=== PATIENT | female | born 1975 | race African-American/Black ===

== ENCOUNTER 2016-05-29 14:19 | Emergency (ER) | payer OTHER, SELFPAY ==
[2016-05-29] MEDS ORDERED: Sulfameth/Trimethoprim DS 800-160mg TAB ONE (14:58)
[2016-05-29] MEDS ORDERED: Dexamethasone 4 mg/ml Vial ONE (15:12)
--- NOTE | 2016-05-29 15:31 | ERRECORD ---
[facility] EMERGENCY RECORD PAST MEDICAL HISTORY (14:50 JSMI) MEDICAL HISTORY: Flu vaccine up to date, Tetanus not up to date, Past medical history includes history of hypertension, which has been treated, Past medical history includes neurological disease, migraine headaches. FEMALE SURGICAL HISTORY: Surgical history of cholecystectomy, laparoscopic, Surgical history of tubal ligation. PSYCHIATRIC HISTORY: No previous psychiatric history. SOCIAL HISTORY: Patient drinks socially, twice a month, Patient denies drug use, Patient has no smoking history.01/19/15. KNOWN ALLERGIES No Known Drug Intolerances CURRENT MEDICATIONS (14:48 JSMI) nortriptyline: CAPSULE : Strength - 25 mg : ORAL Patient Dose: once a day (at bedtime). VITAL SIGNS (14:45 JSMI) VITAL SIGNS: BP: 130/86, Pulse: 86, Resp: 14, Temp: 98.3 (Oral), Pain: 6, O2 sat: 99 on Room Air, Time: 05/29/2016 14:45. MEDICATION ADMINISTRATION SUMMARY Drug Name: dexamethasone, Dose Ordered: 8 mg, Route: Oral, Status: Given, Time: 15:14 05/29/2016, Drug Name: Septra DS, Dose Ordered: 2 tab(s), Route: Oral, Status: Given, Time: 14:59 05/29/2016, Detailed record available in Medication Service section. PROBLEM LIST No recorded problems DIAGNOSIS (15:09 [facility]) FINAL: PRIMARY: Otitis Media - Bilateral. PRESCRIPTION (15:08 JPIP) Septra DS: TABLET : 800 mg-160 mg : ORAL : Quantity: 1 Unit: tab(s) Route: ORAL Schedule: 2 times a day Dispense: 20 May substitute. Refills: No Refills . NOTES: No refills. Tylenol-Codeine #3: TABLET : 300 mg-30 mg : ORAL : Quantity: 1-2 Unit: tab(s) Route: ORAL Schedule: every 6 hours PRN Dispense: 30 May substitute. Refills: No Refills . NOTES: ^s=No refills No refills. &a-1R&a+25V*p+0X*a2587W*c202B*c15G*c2P*p-0X&a-25V&a+1R Name: Carrie Escoto : 1975 F41 MedRec: [id number] AcctNum: [id number] Prepared: WedMay 29, 2016 15:27 by Interface Page 1 of 2 pMD [facility] EMERGENCY RECORD DISPOSITION PATIENT: Disposition Type: Discharge, Disposition: *Discharge Home, Condition: Good. (15:09 JPIP) Patient left the department. (15:22 AHOO) José: AHOO=CAROL Nicole, August JPIP=DO Perez Joseph JSMI=PAUL Booth, Anayeli &a-1R&a+25V*p+0X*i9971Y*c202B*c15G*c2P*p-0X&a-25V&a+1R Name: Carrie Escoto : 1975 F41 MedRec: [id number] AcctNum: [id number] Prepared: WedMay 29, 2016 15:27 by Interface Page 2 of 2 pMD MTDD
--- NOTE | 2016-05-29 15:35 | PICIS ---
[facility] EMERGENCY RECORD TRIAGE (14:48 JSMI) PATIENT: NAME: Carrie Escoto, AGE: 41, GENDER: female, : Lynsey 1975, TIME OF GREET: WedMay 29, 2016 14:19, PREFERRED LANGUAGE: Turkish, ETHNICITY: Not or , ECODE BILLING MAP: [facility], SSN: [id number], Zip Code: [address], KG WEIGHT: 97.52, PHONE: , , , PERSON ID: [id number], PCP: [facility], . (14:48 JSMI) COMPLAINT: BILATERAL EAR PAIN. (14:48 JSMI) ADMISSION: URGENCY: 5 Fast Track, ADMISSION SOURCE: Home, TRANSPORT: CAR, BED: ER -03. (14:48 JSMI) ASSESSMENT: Assessment: PT PRESENTS AWAKE ALERT AND ORIENTED. SKIN PINK WARM AND DRY., Symptoms began 05/26/2016. (14:50 JSMI) PAIN: Patient complains of pain described as, aching, Location BILATERAL EARS R>L, Pain is constant. (14:50 JSMI) SIRS SCORING: Heart Rate 55-109 (0), Temp range 96.8-101.1 (0), respiratory rate 12-24 (0), Mental Status altered: no (0), Infection or Suspected Infection: No. (14:50 JSMI) PROVIDERS: TRIAGE NURSE: Anayeli Booth RN. (14:48 JSMI) VITAL SIGNS: BP 130/86, Pulse 86, Resp 14, Temp 98.3, (Oral), Pain 6, O2 Sat 99, on Room Air, Time 05/29/2016 14:45. (14:45 JSMI) PREVIOUS VISIT ALLERGIES: No Known Drug Intolerances. (14:48 JSMI) No Known Drug Intolerances. (14:50 JSMI) KNOWN ALLERGIES No Known Drug Intolerances CURRENT MEDICATIONS (14:48 JSMI) nortriptyline: CAPSULE : Strength - 25 mg : ORAL Patient Dose: once a day (at bedtime). VITAL SIGNS (14:45 JSMI) VITAL SIGNS: BP: 130/86, Pulse: 86, Resp: 14, Temp: 98.3 (Oral), Pain: 6, O2 sat: 99 on Room Air, Time: 05/29/2016 14:45. NURSING ASSESSMENT: ENT (14:50 [facility]) CONSTITUTIONAL: Complex assessment performed, Patient arrives ambulatory, Gait steady, History obtained from patient, Patient appears comfortable, Patient cooperative, Patient alert, Oriented to person, place and time, Skin warm, Skin dry, Skin normal in color, Mucous membranes pink, Mucous membranes moist, Patient is well-groomed, Patient complains of BILARTERAL EAR PAIN. PAIN: to the left ear, to the right ear, on a scale 0-10 patient rates pain as 6. ENT: no drainage from ears. RESPIRATORY/CHEST: Breath sounds clear, Respiratory assessment findings include respiratory effort easy, Respirations regular, &a-1R&a+25V*p+0X*a0784M*c202B*c15G*c2P*p-0X&a-25V&a+1R Name: Carrie Escoto : 1975 F41 MedRec: [id number] AcctNum: [id number] Prepared: WedMay 29, 2016 15:33 by Interface Page 1 of 4 pMD [facility] EMERGENCY RECORD Conversing normally, Neck and chest exam findings include trachea midline, Chest expansion equal, Chest movement symmetrical, Notes: DENIES COUGH/CONGESTION. NURSING PROCEDURE: DISCHARGE NOTE (15:20 OO) DISCHARGE: Patient discharged to home, ambulating without assistance, driving self, unaccompanied, Summary of Care printed/ provided, Transition record given to patient, Discharge instructions given to patient, Prescriptions given and instructions on side effects given, Above person(s) verbalized understanding of discharge instructions and follow-up care, Patient treated and evaluated by physician. MEDICATION ADMINISTRATION SUMMARY Drug Name: dexamethasone, Dose Ordered: 8 mg, Route: Oral, Status: Given, Time: 15:14 05/29/2016, Drug Name: Septra DS, Dose Ordered: 2 tab(s), Route: Oral, Status: Given, Time: 14:59 05/29/2016, Detailed record available in Medication Service section. MEDICATION SERVICE dexamethasone: Order: dexamethasone - Dose: 8 mg : Oral Schedule: Now Ordered by: Kyrie Perez DO Entered by: Kyrie Perez DO WedMay 29, 2016 15:08 , Acknowledged by: Cristin Nicole LVN WedMay 29, 2016 15:10 Documented as given by: Cristin Nicole LVN WedMay 29, 2016 15:14 Patient, Medication, Dose, Route and Time verified prior to administration. Amount given: 8MG, Correct patient, time, route, dose and medication confirmed prior to administration, Patient advised of actions and side-effects prior to administration, Allergies confirmed and medications reviewed prior to administration, Patient in position of comfort, Side rails up, Cart in lowest position, Family at bedside. Septra DS: Order: Septra DS (sulfamethoxazole/trimethoprim) - Dose: 2 tab(s) : Oral Schedule: Now Ordered by: Kyrie Perez DO Entered by: Kyrie Perez DO WedMay 29, 2016 14:55 , Acknowledged by: Anayeli Booth RN WedMay 29, 2016 14:56 Documented as given by: Anayeli Booth RN WedMay 29, 2016 14:59 Patient, Medication, Dose, Route and Time verified prior to administration. Correct patient, time, route, dose and medication confirmed prior to administration, Patient advised of actions and side-effects prior to administration, Allergies confirmed and medications reviewed prior to administration, Patient in position of comfort, Side rails up, Cart in lowest position. &a-1R&a+25V*p+0X*t4151W*c202B*c15G*c2P*p-0X&a-25V&a+1R Name: Carrie Escoto : 1975 F41 MedRec: [id number] AcctNum: [id number] Prepared: WedMay 29, 2016 15:33 by Interface Page 2 of 4 pMD [facility] EMERGENCY RECORD PAST MEDICAL HISTORY (14:50 JSMI) MEDICAL HISTORY: Flu vaccine up to date, Tetanus not up to date, Past medical history includes history of hypertension, which has been treated, Past medical history includes neurological disease, migraine headaches. FEMALE SURGICAL HISTORY: Surgical history of cholecystectomy, laparoscopic, Surgical history of tubal ligation. PSYCHIATRIC HISTORY: No previous psychiatric history. SOCIAL HISTORY: Patient drinks socially, twice a month, Patient denies drug use, Patient has no smoking history.01/19/15. EVENTS TRANSFER: Triage to Emergency Emergency Room -03. (WedMay 29, 2016 14:48 JSMI) Removed from Emergency Emergency Room -03. (15:22 OO) PROBLEM LIST No recorded problems DIAGNOSIS (15: JPIP) FINAL: PRIMARY: Otitis Media - Bilateral. DISPOSITION PATIENT: Disposition Type: Discharge, Disposition: *Discharge Home, Condition: Good. (15: JPIP) Patient left the department. (15:22 AHOO) INSTRUCTION (15: JPIP) DISCHARGE: EARACHE WITH INFECTION OTITIS MEDIA ABX [place] ADULT. FOLLOWUP: [facility], ., [facility], [address] [place] [address], [address], [place] , . SPECIAL: Finish all your antibiotics Follow up with Primary Care Physician within 72 hours Return to the Emergency Department for increased symptoms problems or concerns Take acetaminophen or ibuprofen for pain. PRESCRIPTION (15:08 JPIP) Septra DS: TABLET : 800 mg-160 mg : ORAL : Quantity: 1 Unit: tab(s) Route: ORAL Schedule: 2 times a day Dispense: 20 May substitute. Refills: No Refills . NOTES: No refills. Tylenol-Codeine #3: TABLET : 300 mg-30 mg : ORAL : Quantity: 1-2 Unit: tab(s) Route: ORAL Schedule: every 6 hours PRN Dispense: 30 May substitute. Refills: No Refills . NOTES: ^s=No refills No refills. &a-1R&a+25V*p+0X*l1060J*c202B*c15G*c2P*p-0X&a-25V&a+1R Name: Carrie Escoto : 1975 F41 MedRec: [id number] AcctNum: [id number] Prepared: WedMay 29, 2016 15:33 by Interface Page 3 of 4 pMD [facility] EMERGENCY RECORD IMAGING *DISCHARGE INSTRUCTIONS RECEIPT: Image captured from scanner. (15:21 OO) *SUPPLY CHARGE SHEET: Image captured from scanner. (15:22 OO) José: AHOO=CAROL NicoleAugust JPIP=DO Perez Joseph JSMI=PAUL Booth Julie &a-1R&a+25V*p+0X*j7517P*c202B*c15G*c2P*p-0X&a-25V&a+1R Name: Carrie Escoto : 1975 F41 MedRec: [id number] AcctNum: [id number] Prepared: WedMay 29, 2016 15:33 by Interface Page 4 of 4 pMD MTDD
== END 2016-05-29 15:20 | disposition home or self-care (01) ==
LOC: BURERS 14:19
DX: H66.93 Otitis media, unspecified, bilateral (principal); I10 Essential (primary) hypertension; G43.909 Migraine, unspecified, not intractable, without status migrainosus; Z79.899 Other long term (current) drug therapy
CPT/HCPCS: 99282; J1100

== ENCOUNTER 2017-10-24 05:17 | Emergency (ER) | payer BC ==
[2017-10-24 05:45] LABS: Clarity Turbid (Clear)
[2017-10-24 05:46] LABS: Glucose, Urine (Dipstick) Negative (Negative); Leukocyte Large (Negative); Nitrite Positive (Negative); Protein, Urine (Dipstick) > or equal to 300 mg/dL (Neg-Trace); Urobilinogen 0.2 mg/dL (0.2-1.0)
[2017-10-24 05:47] LABS: Bilirubin Small (Negative); Blood, Urine Large (Negative)
[2017-10-24 05:48] LABS: Bacteria/HPF 2+ HPF (None Seen); Squamous Epithelial None Seen HPF (0-3)
[2017-10-24] MEDS ORDERED: Nitrofurantoin Monohyd/M-Cryst 100 MG CAP PO SCH (06:00)
[2017-10-24] MEDS ORDERED: Phenazopyridine HCl 97.5 MG TABLET ONE (06:01)
== END 2017-10-24 06:08 | disposition home or self-care (01) ==
LOC: BURERS 05:17
DX: N12 Tubulo-interstitial nephritis, not specified as acute or chronic (principal); G43.909 Migraine, unspecified, not intractable, without status migrainosus; I10 Essential (primary) hypertension; Z79.899 Other long term (current) drug therapy
CPT/HCPCS: 81003; 81015; 87077; 87086; 87186; 99283

== ENCOUNTER 2018-05-14 23:04 | Emergency (ER) | payer BC ==
[2018-05-14] MEDS ORDERED: Neomycin-Polymyxin-Hc 7.5 ML BOT ONE (23:59)
[2018-05-15] MEDS ORDERED: AMOXicillin 250 MG CAP ONE (00:02)
== END 2018-05-15 00:08 | disposition home or self-care (01) ==
LOC: BURERS 23:04
DX: H66.91 Otitis media, unspecified, right ear (principal); H60.91 Unspecified otitis externa, right ear; I10 Essential (primary) hypertension; G43.909 Migraine, unspecified, not intractable, without status migrainosus; Z79.899 Other long term (current) drug therapy
CPT/HCPCS: 69210

== ENCOUNTER 2018-07-27 05:43 | Emergency (ER) | payer BC | END 2018-07-27 06:05 | disposition home or self-care (01) | LOC: BURERS 05:43 | DX: J06.9 Acute upper respiratory infection, unspecified (principal); I10 Essential (primary) hypertension; G43.909 Migraine, unspecified, not intractable, without status migrainosus; Z79.899 Other long term (current) drug therapy | CPT/HCPCS: 99281 ==

== ENCOUNTER 2020-12-27 21:33 | Emergency (ER) | payer BC | END 2020-12-27 22:55 | disposition home or self-care (01) | LOC: BURERS 21:33 | DX: J32.9 Chronic sinusitis, unspecified (principal); I10 Essential (primary) hypertension; G43.909 Migraine, unspecified, not intractable, without status migrainosus; Z79.899 Other long term (current) drug therapy | CPT/HCPCS: 99282 ==

== ENCOUNTER 2021-08-30 22:55 | Emergency (ER) | payer BC | END 2021-08-30 23:23 | disposition home or self-care (01) | LOC: BURERS 22:55 | DX: H66.92 Otitis media, unspecified, left ear (principal); J32.9 Chronic sinusitis, unspecified; I10 Essential (primary) hypertension | CPT/HCPCS: 99282 ==

== ENCOUNTER 2021-09-06 08:06 | Emergency (ER) | payer BC | END 2021-09-06 08:54 | disposition home or self-care (01) | LOC: BURERS 08:06 | DX: H65.02 Acute serous otitis media, left ear (principal); H60.92 Unspecified otitis externa, left ear; I10 Essential (primary) hypertension; Z79.899 Other long term (current) drug therapy | CPT/HCPCS: 99282 ==

== ENCOUNTER 2022-05-16 00:54 | Emergency (ER) | payer BC ==
[2022-05-16] MEDS ORDERED: Budesonide 0.5 MG/2 ML NEB ONE (01:15)
[2022-05-16] MEDS ORDERED: Azithromycin 500 MG VIAL ONE (01:18)
[2022-05-16] MEDS ORDERED: Azithromycin 250 MG TAB ONE (01:19)
== END 2022-05-16 01:41 | disposition home or self-care (01) ==
LOC: BURERS 00:54
DX: J20.9 Acute bronchitis, unspecified (principal); I10 Essential (primary) hypertension; Z79.899 Other long term (current) drug therapy
CPT/HCPCS: 71045; J0456; J7620; J7626

== ENCOUNTER 2024-02-03 07:39 | Emergency (ER) | payer BC ==
[2024-02-03] MEDS ORDERED: Dexamethasone 10 MG/ML VIAL ONE (07:58)
== END 2024-02-03 09:05 | disposition home or self-care (01) ==
LOC: BURERS 07:39
DX: J06.9 Acute upper respiratory infection, unspecified (principal); J20.9 Acute bronchitis, unspecified; I10 Essential (primary) hypertension; Z79.899 Other long term (current) drug therapy
CPT/HCPCS: 71045; 96372; J1100